=== PATIENT | male | born 1970 | race Caucasian/White ===

== ENCOUNTER 2016-09-30 10:28 | Emergency (ER) | payer OTHER ==
[2016-09-30 10:38] VITALS: BP 141/84; PULSE 72; RESP 18; TEMP 99; O2SAT 97
[2016-09-30] MEDS ORDERED: IBUPROFEN 200 MG TAB PO ONE (10:52)
--- NOTE | 2016-09-30 12:41 | UCPHY ---
H & P Time Seen by Provider: 09/30/16 12:11 Patient Type: New HPI/ROS: CHIEF COMPLAINT: Flu-like symptoms History by patient HISTORY OF PRESENT ILLNESS: 46-year-old man presents with 4 days of what he describes as chest congestion and tightness than moving up into his head with sinus congestion and runny nose and headache. He has had subjective fevers and body aches and fatigue. There has been no difficulty breathing, pleuritic chest pain nausea or vomiting. He has a nonproductive cough. He has tried NyQuil with no relief. He did not get a flu shot this year. REVIEW OF SYSTEMS: As in HPI, and all other systems reviewed and are negative Smoking Status: Never smoked Physical Exam: General Appearance: Alert and no distress. Head: normocephalic, atraumatic, no sinus tenderness Eyes: Pupils equal and round no injection. Ears: TM clear bilat OP: mucus membranes moist, mild erythema, no tonsillar enlargement, no exudates Neck: no meningismus, no cervical nodes, no submandibular nodes Respiratory: Chest is nontender, lungs are clear to auscultation. Cardiac: regular rate and rhythm. Gastrointestinal: Abdomen is soft and nontender, no masses, bowel sounds normal. Musculoskeletal: Neck is supple and nontender. Extremities have full range of motion and are nontender. Skin: No rashes or lesions. Constitutional: Initial Vital Signs Temperature (C) 37.2 C 09/30/16 10:35 Heart Rate 72 09/30/16 10:35 Respiratory Rate 18 09/30/16 10:35 Blood Pressure 141/84 H 09/30/16 10:35 O2 Sat (%) 97 09/30/16 10:35 O2 Delivery Mode Room Air Allergies/Adverse Reactions: No Known Allergies Allergy (Unverified 07/27/09 17:41) Home Medications: Medication Instructions Recorded NO HOME MEDS 07/27/09 Albuterol [Proventil Inhaler HFA 1 - 2 puffs IH Q4H #1 mdi 09/30/16 (*)] Medical Decision Making ED Course/Re-evaluation: Patient presents with flu-like symptoms. Influenza testing is negative. We discussed home care in conservative measures. There is no evidence of hypoxia or significant respiratory compromise or systemic toxicity. Patient is discharged home in stable condition. - Data Points Laboratory Results: 09/30/16 10:40 Influenza Typ A,B (DFA) NEGATIVE FOR FLU (NEGATIVE) Medications Given: Discontinued Medications Ibuprofen (Motrin) 600 mg PO EDNOW ONE Stop: 09/30/16 10:53 Last Admin: 09/30/16 11:19 Dose: 600 mg Departure - Departure Disposition: Home, Routine, Self-Care Clinical Impression: Influenza-like illness Condition: Fair Instructions: Influenza (ED) Additional Instructions: You were seen by Dr. Patricia Contreras today. Return for any worsening or new concerns. Take pseudoephedrine as needed for sinus congestion. Try albuterol inhaler for cough. Continue ibuprofen and Tylenol as needed for fever and body aches. Referrals: Henry Jean DO [Primary Care Provider] - As per Instructions Prescriptions: Albuterol [Proventil Inhaler HFA (*)] 1 - 2 puffs IH Q4H #1 mdi - PQRS PQRS Measurement: NA
== END 2016-09-30 12:43 | disposition home or self-care (01) ==
LOC: CED 10:28
DX: R09.89 Other specified symptoms and signs involving the circulatory and respiratory systems (principal); R09.81 Nasal congestion; R51 Headache
CPT/HCPCS: 87400-PO; G0463-PO

== ENCOUNTER 2018-09-21 14:39 | Emergency (ER) | payer OTHER ==
--- NOTE | 2018-09-21 15:49 | EDPHY ---
H & P Stated Complaint: lightheaded,feeling "off balance" for 2 days,anxiety Time Seen by Provider: 09/21/18 15:02 HPI/ROS: This patient describes a fleeting sharp intense headache that lasted for a few seconds left parietal region on Friday, 2 days prior to arrival that resolved is been followed by "feeling off" in terms of his stability and balance. He has difficulty describing this in any detail except to say that he feels slightly off balance when he is up and about. This is associated with anxiety due to this feeling of imbalance. He notes no clear exacerbating factors. He does not have a headache currently. He had a similar episode of lesser intensity 5 years ago was noted to have hypertension is primary care physician' s office. He took antihypertensives for brief time but that is felt that he did not warrant the blood pressure medication so it was stopped several months ago. He denies any other focal symptoms except mild nausea over the past 48 hr. ROS: Constitutional: No fevers. He still tolerates exercise despite his symptoms. He has been sleeping well he has no other constitutional symptoms. HEENT: No URI symptoms. No ear pain or tinnitus. No vision changes. Neuro: No headache since Friday. No difficulty thinking. No focal numbness tingling weakness. He simply complains of his balance being off. Pulmonary: No cough shortness of breath Cardiovascular: No heart palpitations or chest pain. No leg swelling. Psychiatric: He admits anxiety admits that he tends to dwell on physical symptoms if they persist. GI: Mild nausea but no vomiting. No abdominal pain. Normal bowel movements. He does report early satiety : No complaints Endocrine: No complaints Integumentary: No skin rash or pallor. No diaphoresis 10 point review of symptoms is performed and otherwise negative with exception of pertinent positives and negatives listed in HPI and ROS Source: Patient Exam Limitations: No limitations - Personal History Current Tetanus Diphtheria and Acellular Pertussis (TDAP): No - Medical/Surgical History Hx Asthma: No Hx Chronic Respiratory Disease: No Hx Diabetes: No Hx Cardiac Disease: No Hx Renal Disease: No Hx Cirrhosis: No Hx Alcoholism: No Hx HIV/AIDS: No Hx Splenectomy or Spleen Trauma: No Other PMH: hypertension(resolved) - Family History Significant Family History: No pertinent family hx - Social History Smoking Status: Former smoker (He quit over 20 years ago) Alcohol Use: Occasionally (None over the past few days) Drug Use: None Additional Social History: He is currently not working but does not feel stressed about this as he is still well positioned financially. - Physical Exam Exam: Physical exam: Vital signs are normal General: Patient is in no acute distress. HEENT: Is no external evidence of trauma on exam. Eyes: Pupils are equal and reactive to light. Extraocular motions are intact. Optic fundi: Clear with no papilledema or hemorrhage. Nose atraumatic. Ears: Clear bilaterally with no hemotympanum. Oropharynx: No dental trauma or malocclusion. No intraoral lacerations. Eyes: Pupils are equal and reactive to light. Extraocular motions are intact. Optic fundi: Clear with no papilledema or hemorrhage. Lungs: Clear to auscultation bilaterally Neck: Supple no meningismus. Cardiac: Regular rate and rhythm no murmur gallop or rub. Abdomen: Soft nontender no organomegaly Neuro: GCS of 15. NIH stroke scale of 0. Cranial nerves II through XII intact. Cerebellar exam is normal as judged by symmetric rapid hand movements bilaterally. No pronator drift. No sensory or motor deficits are appreciated. Initial differential diagnosis: Migraine, tension headache, [employer] lesion, intracranial bleed, anxiety, conversion disorder, myocardial ischemic disease, dysrhythmia, metabolic abnormality, anemia, dehydration Constitutional: Initial Vital Signs Temperature (C) 36.6 C 09/21/18 14:55 Heart Rate 66 09/21/18 14:55 Respiratory Rate 16 09/21/18 14:55 Blood Pressure 155/78 H 09/21/18 14:55 O2 Sat (%) 94 09/21/18 14:55 O2 Delivery Mode Room Air Allergies/Adverse Reactions: No Known Allergies Allergy (Verified 09/21/18 14:53) Home Medications: Medication Instructions Recorded NK [No Known Home Meds] 09/21/18 Medical Decision Making - Diagnostics EKG Interpretation: 12 lead EKG performed at 1534 reveals sinus rhythm at 68 Intervals: Normal throughout [place]: Normal throughout ST segments: Normal throughout Overall assessment: Normal EKG Imaging Results: Imaging Impressions Head CT 09/21/18 15:22 Impression: 1. Normal CT brain without contrast. 2. No sinusitis. 3. Consider MRI of the brain, if there is continued clinical concern. Findings and recommendations discussed with Emergency Department physician, Bertin Dick, at 1607 hours, 09/21/2018. Final report concurs with initial preliminary interpretation. Imaging: Discussed imaging studies w/ call box wirer Radiologist ED Course/Re-evaluation: The patient remained stable without any further complaints while here. I reviewed the patient's labs-normal CBC, metabolic panel and urinalysis. His EKG is also normal. Head CT is normal. I consult Out-neurologist on-call spoken regarding this patient's presentation-a fleeting headache the last few seconds followed by vague dizziness without any discernible physical exam abnormalities and a normal head CT and labs. He also feels the patient is safe for discharge home. I advised the patient to try meclizine although there is no overt vertiginous findings on his exam today and follow up with primary care physician if he feels he is improving or neurologist feels he still has persistent symptoms. Discussion: Patient here with dizziness of uncertain etiology with workup revealing no "red flag findings". We ruled out stroke, no evidence of cardiac pathology contributing, currently no vertiginous findings and negative Brian- Hallpike test. No evidence of central vertigo on exam. He admits that he may have anxiety contributing to his symptoms. Planus a trial of meclizine with follow up with Neurology as outlined above. He understands need to return emergency department should he develop any significant worsening despite the treatment plan. - Data Points Laboratory Results: 09/21/18 15:39 POC Sodium 141 mEq/L mEq/L (135-145) POC Potassium 4.1 mEq/L mEq/L (3.3-5.0) POC Chloride 105.0 mEq/L mEq/L (97-110) POC Total CO2 27 mEq/L mEq/L (22-31) POC BUN 17 mg/dL mg/dL (7-23) POC Creatinine 1.1 mg/dL mg/dL (0.7-1.3) POC Glucose 99 mg/dL mg/dL (70-100) POC Calcium 10.1 mg/dL mg/dL (8.5-10.4) POC Total Bilirubin 1.1 mg/dL mg/dL (0.1-1.4) POC AST 39 IU/L IU/L (17-59) POC ALT 41 IU/L IU/L (21-72) POC Alk Phosphatase 58 IU/L IU/L (38-126) POC Total Protein 8.2 g/dL g/dL (6.3-8.2) POC Albumin 4.1 g/dL g/dL (3.5-5.0) Point of Care Test Results: CBC CBC Collection Date 09/21/18 CBC Collection Time 15:28 WBC 7.51 RBC 5.64 HGB 17.2 HCT 50.4 PLT 214 Neut # 3.47 Neut 46.3 LYMPH # 3.32 LYMPH 44.2 MCV 89.4 Chemistry 09/21/18 15:39 POC Sodium 141 mEq/L mEq/L (135-145) POC Potassium 4.1 mEq/L mEq/L (3.3-5.0) POC Chloride 105.0 mEq/L mEq/L (97-110) POC Total CO2 27 mEq/L mEq/L (22-31) POC BUN 17 mg/dL mg/dL (7-23) POC Creatinine 1.1 mg/dL mg/dL (0.7-1.3) POC Glucose 99 mg/dL mg/dL (70-100) POC Calcium 10.1 mg/dL mg/dL (8.5-10.4) POC Total Bilirubin 1.1 mg/dL mg/dL (0.1-1.4) POC AST 39 IU/L IU/L (17-59) POC ALT 41 IU/L IU/L (21-72) POC Alk Phosphatase 58 IU/L IU/L (38-126) POC Total Protein 8.2 g/dL g/dL (6.3-8.2) POC Albumin 4.1 g/dL g/dL (3.5-5.0) Comprehensive Metabolic Panel CMP Collection Date 09/21/18 CMP Collection Time 15:28 Urine Dip Collection Date 09/21/18 Collection Time 15:59 Specific [place] (1.002-1.030) 1.025 PH (5.0-7.5) 7.0 Leukocytes (Negative) Negative Nitrites (Negative) Negative Protein (Negative) Negative Glucose (Negative) Negative Ketones (Negative) Negative Urobilnogen (0.2-1.0 EU) 0.2 Bilirubin (Negative) Negative Blood (Negative) Negative Departure - Departure Disposition: Home, Routine, Self-Care Clinical Impression: Dizziness Headache Qualifiers: Headache type: paroxysmal hemicrania Headache chronicity pattern: episodic headache Intractability: not intractable Qualified Code(s): G44.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 Fleeting hemicranial headache-resolved Your CT head, EKG, blood count, comp metabolic panel and urinalysis are normal today. The cause of ear dizziness is unclear but we do not see evidence today of stroke, metabolic disarray, anemia or cardiac condition is the cause of her symptoms. Plan: Consider meclizine [id number] medication for dizziness 25 mg twice a day if he have any recurrence of the dizziness. If you have persistent symptoms, follow up with Dr. Gold, neurologist for further workup as an outpatient. Return emergency department for any significant worsening of your symptoms Referrals: Henry Jean DO [Primary Care Provider] - As per Instructions Valentín Gold MD [Medical Doctor] - As per Instructions
--- NOTE | 2018-09-21 15:51 | CPEKG ---
Test Reason : OPEN Blood Pressure : / mmHG Vent. Rate : 068 BPM Atrial Rate : 068 BPM P-R Int : 166 ms QRS Dur : 100 ms QT Int : 392 ms P-R-T Axes : 040 061 005 degrees QTc Int : 417 ms Sinus rhythm Confirmed by Bhavya Robbins ([id number]) on 09/21/2018 3:51:10 PM Referred By: BHAVYA ROBBINS Confirmed By:Bhavya Robbins
[2018-09-21 17:01] VITALS: BP 143/80
== END 2018-09-21 17:07 | disposition home or self-care (01) ==
LOC: CED 14:39
DX: R42 Dizziness and giddiness (principal); G44.039 Episodic paroxysmal hemicrania, not intractable; Z87.891 Personal history of nicotine dependence
CPT/HCPCS: 70450-PO; 80053-ER; 85025-QW-ER; 99285-ER